=== PATIENT | female | born 1945 | race Two or more races ===

== ENCOUNTER 2019-04-24 15:32 | Emergency (ER) | payer OTHER ==
[~2019-04-24] VITALS: Ht 160 cm; Wt 72.6 kg
[2019-04-24 16:13] LABS: Urine Bacteria FEW /hpf (None Seen); Urine Blood Negative /uL (Negative); Urine Hyaline Cast FEW /lpf (0 - 2); Urine Specific Gravity 1.013 (1.001-1.035); Urine WBC 29 /hpf (0 - 5)
[2019-04-24] MEDS ORDERED: HYDROcodone-ACET 7.5/325MG TAB PO ONE (17:15)
[2019-04-24] MEDS ORDERED: HYDROcodone-ACET 10/325MG TAB PO ONE (17:15)
[2019-04-24 18:41] LABS: Basophils # (auto) 0.1 uL; Eosinophils # (auto) 0.1 uL; Hematocrit 43.2 % (36.0-46.0); Hemoglobin 14.8 g/dL (12.2-16.2); Mean Corpuscular Hemoglobin 34.1 pg (28.0-32.0); Mean Corpuscular Hgb Conc. 34.2 g/dL (32.0-36.0); Monocytes # (auto) 0.6 uL; Neutrophils # (auto) 6.1 uL
[2019-04-24 18:45] LABS: Eosinophils % (auto) 1.2 % (0.0-7.0); Mean Corpuscular Volume 99.7 fL (80.0-100.0); Monocytes % (auto) 7.2 % (0.0-12.0); Neutrophils % (auto) 68.6 % (37.0-80.0); Nucleated Red Blood Cells % 0.2 %; Platelet Count (auto) 289 10^3/uL (140-450); Red Blood Cells 4.33 10^6/uL (4.0-5.20)
[2019-04-24] MEDS ORDERED: ONDANSETRON HCL 4 MG/2 ML VIAL IV ONE (18:45)
[2019-04-24] MEDS ORDERED: MORPHINE SULF INJ 2 MG/ML SYRINGE 1ML IV ONE (18:45)
[2019-04-24 19:00] LABS: Potassium 3.3 mmol/L (3.5-5.1)
[2019-04-24 19:08] LABS: Albumin 4.2 g/dL (3.4-5.0); Bilirubin, Total 0.4 mg/dL (0.2-1.0); Calcium 9.8 mg/dL (8.5-10.1); Magnesium 2.2 mg/dL (1.6-2.6); Total Protein 8.1 g/dL (6.4-8.2)
[2019-04-24 19:17] VITALS: BP 152/81
== END 2019-04-24 22:08 | disposition home or self-care (01) ==
LOC: ER 15:38
DX: N39.0 Urinary tract infection, site not specified (principal); M47.9 Spondylosis, unspecified; M48.061 Spinal stenosis, lumbar region without neurogenic claudication; M62.838 Other muscle spasm; E78.5 Hyperlipidemia, unspecified; I10 Essential (primary) hypertension
CPT/HCPCS: 36415; 72128; 72131; 74176; 80053; 81001; 83735; 85025; 93005; 94761; 96374; 96375; 99284; J2270; J2405